=== PATIENT | female | born 2000 | race African-American/Black ===

== ENCOUNTER 2022-07-28 13:00 | Emergency (ER) | payer BC, SELFPAY ==
[2022-07-28] MEDS ORDERED: Ondansetron ODT 4 MG TAB ONE (13:50)
== END 2022-07-28 14:05 | disposition home or self-care (01) ==
LOC: NAV ERS 13:00
DX: R11.2 Nausea with vomiting, unspecified (principal)
CPT/HCPCS: 99283; Q0162